=== PATIENT | female | born 1985 | race Caucasian/White ===

== ENCOUNTER 2019-05-24 20:06 | Observation (INO) | payer OTHER ==
[~2019-05-24] VITALS: Ht 165.1 cm; Wt 91.5 kg
[2019-05-24] MEDS ORDERED: CYCL10 PO (20:18)
[2019-05-24 20:40] LABS: BASOPHILS ABSOLUTE AUTO 0.06 K/mm3 (0.00-0.23); BASOPHILS PERCENT AUTO 0 % (0-2); EOSINOPHILS ABSOLUTE AUTO 0.03 K/mm3 (0.00-0.68); EOSINOPHILS PERCENT AUTO 0 % (0-6); Hematocrit 44.7 % (33.0-51.0); Hemoglobin 15.2 g/dL (11.5-16.0); IMMATURE GRAN ABSOLUTE AUTO 0.05 K/mm3 (0.00-0.10); IMMATURE GRAN PERCENT AUTO 0 % (0-1); LYMPHOCYTES ABSOLUTE AUTO 4.64 K/mm3 (0.84-5.20); LYMPHOCYTES PERCENT AUTO 33 % (21-46); MONOCYTES ABSOLUTE AUTO 0.86 K/mm3 (0.16-1.47); MONOCYTES PERCENT AUTO 6 % (4-13); Mean Corpuscular Volume 100 fL (80-100); Mean Platelet Volume 10.9 fL (9.1-12.4); NEUTROPHILS ABSOLUTE AUTO 8.32 K/mm3 (1.96-9.15); NEUTROPHILS PERCENT AUTO 60 % (41-73); Platelet Count 445 K/mm3 (150-400); RDW Coefficient Variation 12.5 % (11.7-14.2); RDW Standard Deviation 46.5 fL (35.1-46.3); Red Blood Cell Count 4.47 M/mm3 (3.80-5.20); White Blood Cell Count 13.96 K/mm3 (4.00-11.30)
[2019-05-24 20:59] LABS: Ethanol (Alcohol), Blood, Med <3 mg/dL; Salicylate 2.7 mg/dL (2.8-20.0)
[2019-05-24 21:00] LABS: Alanine Aminotransfer (ALT/SGP 15 U/L (12-78); Alk Phos 75 U/L (50-136); Anion Gap 9 mmol/L (6-16); Aspartate Aminotrans (AST/SGOT 10 U/L (12-37); Bilirubin, Total 0.6 mg/dL (0.1-1.0); Blood Urea Nitrogen 17 mg/dL (8-24); Bun/Creatinine Ratio 27.2 (12.0-20.0); CO2, Blood 29 mmol/L (21-32); Calcium, Blood 9.6 mg/dL (8.5-10.1); Chloride, Blood 104 mmol/L (98-108); Creatinine, Blood 0.62 mg/dL (0.40-1.00); Globulin, Blood 4.2 g/dL (2.2-4.0); Glomerular Filtration Rate >60 (60-); Glucose, Blood 98 mg/dL (70-99); Potassium, Blood 3.9 mmol/L (3.5-5.5); Sodium, Blood 142 mmol/L (136-145); Total Protein, Blood 8.2 g/dL (6.4-8.2)
[2019-05-24 21:09] LABS: Acetaminophen, Random <2.0 ug/mL (10.0-30.0)
[2019-05-24 22:16] LABS: Source, Urine Clean Catch
[2019-05-24 22:26] LABS: Bilirubin, Urine Neg (Neg); Blood, Urine 2+ (Neg); Glucose Qualitative, Urine Neg (Neg); Ketones, Urine 1+ (Neg); Leukocyte Esterase, Urine Neg (Neg); Nitrite, Urine Neg (Neg); Protein, Urine 2+ (Neg); Specific Gravity, Urine 1.025 (1.003-1.022); Urobilinogen, Urine NORM (Normal)
[2019-05-24 22:32] LABS: Appearance, Urine Clear (Clear); Color, Urine Amber (P-Yellow)
[2019-05-24 22:33] LABS: Bacteria Many /hpf; Red Blood Cells, Urine 0-2 /hpf (0-2); Squamous Epithelial Cells Mod /hpf (Few)
[2019-05-24 22:43] LABS: U Amphetamine Screen Not Detected; U Barbituate Screen Not Detected; U Benzodiazapine Screen Not Detected; U Buprenorphine Screen Not Detected; U Cannabinoids Screen Not Detected; U Cocaine Screen Not Detected; U Methadone Screen Not Detected; U Methamphetamine Screen Not Detected; U Opiates Screen Not Detected; U Oxycodone Screen Not Detected; U Phencyclidine Screen Not Detected; U Propoxyphene Screen Not Detected
[2019-05-24 23:19] LABS: CPK Creatine Kinase 47 U/L (26-193)
[2019-05-24 23:23] LABS: Creatine Kinase MB <1.0 ng/mL (0.0-3.6); Creatine Kinase MB Index Unable to Calculate (0.0-4.0)
--- NOTE | 2019-05-25 03:00 | NUR ---
RECEIVED HAND OFF ER NURSE USING SBAR. TRANSPORTED TO ROOM 210 VIA STRETCHER AT 0245HRS. TRANSFERED TO BED WITH MINIMAL STAFF ASSISTANCE, TOLERATED WELL. ATTEPMTED TO ORIENT TO ROOM, CALL SYSTEM, AND POC. VOICES UNDERSTANDING, BUT CONFUSION, AND INABILITY TO FIND ANSWERS NOTED WITH MOST QUESTIONS. WILL REATTEMPT. RESPIRATIONS EVEN AND UNLABORED ON ROOM AIR. LUNG SOUNDS CLEAR BILATERALLY. ABDOMEN SOFT AND NONDISTENDED. BOWEL SOUNDS PRESENT IN ALL QUADS. LEFT AC 20G PIV IS PATENT, FLUSHING WITH EASE WHILE INFUSING NS AITH 20MEQ KCL AT 100ML/HR. CONTINENT OF BOWEL AND BLADDER, ABLE TO AMBULATE TO BATHROOM WITH MINIML ASSISTANCE. NEUR INTACT. DENEIS PAIN, DISCOMFORT, OR FURTHER NEEDS AT THIS TIME. ADMISSION ASSESSMENT IN [facility]. SAFETY MEASURES IN PLACE. WILL CONTINUE TO MONITOR.
[2019-05-25 04:51] LABS: BASOPHILS ABSOLUTE AUTO 0.06 K/mm3 (0.00-0.23); BASOPHILS PERCENT AUTO 1 % (0-2); EOSINOPHILS ABSOLUTE AUTO 0.05 K/mm3 (0.00-0.68); EOSINOPHILS PERCENT AUTO 0 % (0-6); Hematocrit 40.7 % (33.0-51.0); Hemoglobin 13.9 g/dL (11.5-16.0); IMMATURE GRAN ABSOLUTE AUTO 0.04 K/mm3 (0.00-0.10); IMMATURE GRAN PERCENT AUTO 0 % (0-1); LYMPHOCYTES ABSOLUTE AUTO 5.23 K/mm3 (0.84-5.20); LYMPHOCYTES PERCENT AUTO 40 % (21-46); MONOCYTES ABSOLUTE AUTO 0.74 K/mm3 (0.16-1.47); MONOCYTES PERCENT AUTO 6 % (4-13); Mean Corpuscular HGB 33.7 pg (26.0-34.0); Mean Corpuscular HGB Conc 34.2 g/dL (31.5-36.5); Mean Corpuscular Volume 99 fL (80-100); NEUTROPHILS ABSOLUTE AUTO 6.89 K/mm3 (1.96-9.15); NEUTROPHILS PERCENT AUTO 53 % (41-73); Platelet Count 361 K/mm3 (150-400); RDW Coefficient Variation 12.6 % (11.7-14.2); Red Blood Cell Count 4.12 M/mm3 (3.80-5.20); White Blood Cell Count 13.01 K/mm3 (4.00-11.30)
--- NOTE | 2019-05-25 06:17 | NUR ---
SHIFT SUMMARY HAS BEEN RESTING SINCE ADMISSION. GOT OOB X3 THIS SHIFT. HAS STILL BEEN CONFUSED EACH TIME. BED ALARM IN PLACE. REITERATED USE OF CALL HENAO WITH NEEDS, VOICES UNDERSTANDING. SAFETY MEASURES IN PLACE. WILL GIVE HAND OFF TO ONCOMING SHIFT USING SBAR.
--- NOTE | 2019-05-25 12:14 | NUR ---
patient up to bathroom with emesis x 1. unsteady on feet and reports her right side feels numb though olive picker/extremity testing is equal. vss. educated patient and family on one time doses of imitrex & phenergan. patient appropriate with conversation, reports understanding.
--- NOTE | 2019-05-25 16:58 | NUR ---
SUMMARY: VSS. NO ACUTE NEUROLOGIC CHANGES TODAY. PT CONTINUES TO HAVE A HARD TIME ANSWERING SOME QUESTIONS AND IS SLOW TO ANSWER. REPORTED SMALL HEADACHE TODAY, DR. CLARK ORDERED FIORICET AND IMITREX PRN, IMITREX GIVEN X1 WITH PT REPORTING SOME DECREASE IN PAIN. DR. CLARK ORDERED CONSULT TO DR. PALACIOS, FACESHEET SENT TO ER. WILL CTM, NO ACUTE SAFETY CONCERNS AT THIS TIME. BED ALARM ON FOR SAFETY AND TO MORE CLOSELY MONITOR PT.
--- NOTE | 2019-05-26 09:06 | NUR ---
5713 PATIENT SLOW TO RESPOND TO QUESTIONS AT TIMES, SEARCHES FOR WORDS
[2019-05-26 09:41] LABS: BASOPHILS ABSOLUTE AUTO 0.05 K/mm3 (0.00-0.23); BASOPHILS PERCENT AUTO 1 % (0-2); EOSINOPHILS ABSOLUTE AUTO 0.14 K/mm3 (0.00-0.68); EOSINOPHILS PERCENT AUTO 1 % (0-6); Hematocrit 39.8 % (33.0-51.0); Hemoglobin 13.4 g/dL (11.5-16.0); IMMATURE GRAN ABSOLUTE AUTO 0.03 K/mm3 (0.00-0.10); IMMATURE GRAN PERCENT AUTO 0 % (0-1); LYMPHOCYTES ABSOLUTE AUTO 3.08 K/mm3 (0.84-5.20); LYMPHOCYTES PERCENT AUTO 31 % (21-46); MONOCYTES ABSOLUTE AUTO 0.53 K/mm3 (0.16-1.47); MONOCYTES PERCENT AUTO 5 % (4-13); Mean Corpuscular HGB 33.9 pg (26.0-34.0); Mean Corpuscular HGB Conc 33.7 g/dL (31.5-36.5); Mean Corpuscular Volume 101 fL (80-100); Mean Platelet Volume 11.1 fL (9.1-12.4); NEUTROPHILS ABSOLUTE AUTO 5.97 K/mm3 (1.96-9.15); NEUTROPHILS PERCENT AUTO 61 % (41-73); Platelet Count 355 K/mm3 (150-400); RDW Coefficient Variation 12.4 % (11.7-14.2); RDW Standard Deviation 46.6 fL (35.1-46.3); Red Blood Cell Count 3.95 M/mm3 (3.80-5.20)
--- NOTE | 2019-05-26 14:33 | NUR ---
1415 patient out of room
[2019-05-26] MEDS ORDERED: ACET325 PO (16:40)
[2019-05-26] MEDS ORDERED: IBUP400 PO (16:41)
[2019-05-26] MEDS ORDERED: ONDA4 PO (16:46)
[2019-05-26] MEDS ORDERED: SUMA25 PO (16:50)
--- NOTE | 2019-05-26 17:12 | NUR ---
1710 DISCHARGE PRESCRIPTIONS PHONED TO JACKELYN. DISCHARGE INSTRUCTIONS GIVEN AND PATIENT HAS NO QUESTIONS
== END 2019-05-26 17:11 | disposition home or self-care (01) ==
LOC: ER 20:06 → SURS 20:07
PROVIDERS: Emergency Medicine; Family Medicine; Nurse Practitioner Acute Care; Physician Assistant; ADMIT Hospitalist
DX: G43.909 Migraine, unspecified, not intractable, without status migrainosus (principal); G93.40 Encephalopathy, unspecified; R49.1 Aphonia; D72.829 Elevated white blood cell count, unspecified; F15.20 Other stimulant dependence, uncomplicated; F17.200 Nicotine dependence, unspecified, uncomplicated; Z88.0 Allergy status to penicillin; Z79.899 Other long term (current) drug therapy; Z98.890 Other specified postprocedural states
CPT/HCPCS: 36415; 70450; 70496; 71045; 80053; 81001; 82140; 82550; 82553; 84145; 85025; 87086; 96361; 96372; 96374-59; 96375-59; 99284-25; G0378; G0480; J1200; J1650; J2765; J3030; J3480; J7030; Q9967

== ENCOUNTER → 2021-12-13 | Outpatient (CLI) | payer OTHER ==
[~2021-12-13] MED LIST: ACET325 PO; CYCL10 PO; IBUP400 PO; ONDA4 PO; SUMA25 PO
[2021-12-14 09:46] LABS: Candida species (DNA Probe) Positive (NEGATIVE); G. vaginalis (DNA Probe) Positive (NEGATIVE); T. vaginalis (DNA Probe) Negative (NEGATIVE)
[2021-12-15 18:10] LABS: CHLAMYDIA BY NAA Negative (Negative); GONOCOCCUS BY NAA Negative (Negative); TRICH VAG BY NAA Negative (Negative)
== END | disposition home or self-care (01) ==
LOC: LAB 13:41 → LAB SHORT 13:41
PROVIDERS: Physician Assistant
DX: N76.0 Acute vaginitis (principal); R82.79 Other abnormal findings on microbiological examination of urine
CPT/HCPCS: 87086; 87480; 87491; 87510; 87591; 87660; 87661

== ENCOUNTER 2023-10-09 07:59 | Emergency (ER) | payer OTHER ==
[~2023-10-09] VITALS: Ht 157.5 cm; Wt 108.9 kg
[2023-10-09 08:31] VITALS: BP 164/92
[2023-10-09] MEDS ORDERED: Bactrim Ds Tab1 EACH PO (09:35)
== END 2023-10-09 10:05 | disposition home or self-care (01) ==
LOC: ER 07:59
DX: N63.21 Unspecified lump in the left breast, upper outer quadrant (principal); N64.53 Retraction of nipple; G43.909 Migraine, unspecified, not intractable, without status migrainosus; Z88.0 Allergy status to penicillin
CPT/HCPCS: 76604; 99283-25

== ENCOUNTER 2023-10-17 16:52 | Emergency (ER) | payer OTHER ==
[~2023-10-17] VITALS: Ht 157.5 cm; Wt 107.0 kg
[~2023-10-17 16:52] MED LIST changes: +Bactrim Ds Tab1 EACH PO
[2023-10-17 17:34] LABS: BASOPHILS ABSOLUTE AUTO 0.06 K/mm3 (0.00-0.23); BASOPHILS PERCENT AUTO 1 % (0-2)
[2023-10-17 17:42] LABS: EOSINOPHILS ABSOLUTE AUTO 0.16 K/mm3 (0.00-0.68); EOSINOPHILS PERCENT AUTO 1 % (0-6); Hemoglobin 13.3 g/dL (11.5-16.0); IMMATURE GRAN ABSOLUTE AUTO 0.06 K/mm3 (0.00-0.10); IMMATURE GRAN PERCENT AUTO 1 % (0-1); LYMPHOCYTES ABSOLUTE AUTO 2.88 K/mm3 (0.84-5.20); LYMPHOCYTES PERCENT AUTO 23 % (21-46); MONOCYTES ABSOLUTE AUTO 0.73 K/mm3 (0.16-1.47); MONOCYTES PERCENT AUTO 6 % (4-13); Mean Corpuscular HGB 33.6 pg (26.0-34.0); Mean Corpuscular Volume 96 fL (80-100); NEUTROPHILS ABSOLUTE AUTO 8.42 K/mm3 (1.96-9.15); NEUTROPHILS PERCENT AUTO 68 % (41-73); RDW Coefficient Variation 12.5 % (11.7-14.2); RDW Standard Deviation 43.8 fL (35.1-46.3); Red Blood Cell Count 3.96 M/mm3 (3.80-5.20); White Blood Cell Count 12.31 K/mm3 (4.00-11.30)
[2023-10-17 17:51] LABS: Mean Platelet Volume 10.7 fL (9.1-12.4)
[2023-10-17 17:52] LABS: Albumin, Blood 3.4 g/dL (3.4-5.0); Albumin/Globulin Ratio 0.8 (0.8-1.8); Bilirubin, Total 0.6 mg/dL (0.1-1.0); Bun/Creatinine Ratio 16.9 (12.0-20.0); Creatinine, Blood 0.59 mg/dL (0.40-1.00); Potassium, Blood 3.6 mmol/L (3.5-5.5); Total Protein, Blood 7.4 g/dL (6.4-8.2)
[2023-10-17 19:08] LABS: Platelet Count 335 K/mm3 (150-400)
[2023-10-17] MEDS ORDERED: Cleocin HCl300 MG PO (21:12)
[2023-10-17 21:29] VITALS: BP 109/46
== END 2023-10-17 21:34 | disposition home or self-care (01) ==
LOC: ER 16:52
PROVIDERS: Student in an Organized Health Care Education/Training Program
DX: N61.1 Abscess of the breast and nipple (principal); G43.909 Migraine, unspecified, not intractable, without status migrainosus
CPT/HCPCS: 80053; 85025; 99283; A9270

== ENCOUNTER 2023-10-24 18:31 | Emergency (ER) | payer OTHER ==
[~2023-10-24] VITALS: Ht 157.5 cm; Wt 107.0 kg
[~2023-10-24 18:31] MED LIST changes: +Cleocin HCl300 MG PO
[2023-10-24] MEDS ORDERED: Lisinopril2.5 MG PO (19:23)
[2023-10-24] MEDS ORDERED: IBUP800 PO (21:16)
[2023-10-24] MEDS ORDERED: DOXY100 PO (21:16)
[2023-10-24 21:20] VITALS: BP 155/45
== END 2023-10-24 21:30 | disposition home or self-care (01) ==
LOC: ER 18:31
DX: N61.1 Abscess of the breast and nipple (principal); G43.909 Migraine, unspecified, not intractable, without status migrainosus; F17.210 Nicotine dependence, cigarettes, uncomplicated; Z79.899 Other long term (current) drug therapy
CPT/HCPCS: 19020; 87070; 87075; 87076; 87185; 87205; 96374-59; 99283-25; J1885